=== PATIENT | female | born 1955 | race Caucasian/White ===

== ENCOUNTER 2024-08-29 09:25 | Outpatient (CLI) | payer MEDICARE, SELFPAY ==
--- NOTE | ~2024-08-29 | MM_ITS ---
BILATERAL DIGITAL SCREENING MAMMOGRAM WITH RAFITA INDICATION: Asymptomatic, referred for screening mammogram COMPARISON: 03/06/2006 TECHNIQUE: Digital breast tomosynthesis craniocaudal and mediolateral oblique views of Both breasts w ere obtained. FINDINGS: There are scattered areas of fibroglandular density. No focal dominant mass, architectural distortion, or suspicious microcalcifications are identified. There are no features to suggest malignancy. IMPRESSION: No evidence of malignancy in the breast. Recommend continued screening mammography BI-RADS 1, NEGATIVE Reviewed, dictated and finalized at location B.
--- NOTE | ~2024-08-29 | DEXA_ITS ---
Bone Density Report Name: YLOANDE BADILLO Age: 69 Sex: Female Ethnicity: White Date of : 1955 Indication: postmenopausal; screening for osteoporosis; height loss; Referring Provider: ESDRAS*, FLORINDA Chanel Study: Bone densitometry was performed. Exam Date: August 29, 2024 Accession number: [id number] Bone Density: Region BMD T-score Z-score Classification AP Spine(L1-L4) 0.919 -1.2 1.0 Osteopenia Femoral Neck (Left) 0.611 -2.1 -0.3 Osteopenia Total Hip (Left) 0.723 -1.8 -0.2 Osteopenia Femoral Neck (Right) 0.573 -2.5 -0.6 Osteoporosis Total Hip (Right) 0.670 -2.2 -0.6 Osteopenia Total Hip Mean 0.696 -2.0 -0.4 Osteopenia World Health Organization criteria for BMD impression classify patients as: Normal (T-score at or above -1.0), Osteopenia (T-score between -1.0 and -2.5), or Osteoporosis (T-score at or below -2.5). 10-year Fracture Risk: FRAX not reported because: Some T-score for Spine Total or Hip Total or Femoral Neck at or below -2.5 Clinical Information Provided by Patient: Has used the following medications: Vitamin D Patient maximum height was 70 Menopause Age: 49 No regular weight bearing exercise Does not regularly consume dairy products Drinks caffeinated beverages Onset of menses at age 11 Number of children 3 Impression: The patient has osteoporosis, based on the Right Femoral Neck T-score. Discussion: INCREASED RISK OF FRACTURE. BONE DENSITY IS UNDESIRABLY LOW AT ONE OR MORE SKELETAL SITES, CONSISTENT WITH POSTMENOPAUSAL OSTEOPOROSIS. This patient's lowest T-score meets the World Health Organization's (WHO) criteria for osteoporosis at one or more sites (T-score -2.5 or below). In untreated patients, the risk of osteoporotic fracture increases approximately two-fold for each 1.0 SD decrease in T-score. Low bone density is not the only risk factor for fracture; also consider factors such as patient's age, frailty or poor health, risk of falling, risk of injury, previous osteoporotic fracture, family history of osteoporosis, cigarette smoking, low body weight, etc. Not everyone with low bone mineral density has osteoporosis; osteomalacia and other metabolic bone disorders should also be considered. Patients who have osteoporosis should be evaluated for specific diseases and conditions (secondary causes) that may cause or contribute to bone loss. The [place] [employer]ocrinologists (AACE) and National Osteoporosis Foundation (NOF) recommend pharmacologic intervention for all postmenopausal women whose T-score is in this range. The patient should follow a healthful lifestyle (good nutrition with adequate calcium and vitamin D, and appropriate weight-bearing exercise). Follow-Up: Consider a repeat BMD and Vertebral Fracture Assessment (VFA) exam in 2 years or sooner if medically necessary, to reassess this patient's status. Reported by: ALEYDA on 08/29/2024 10:05:00 AM. Reviewed, dictated and finalized at location A.
--- OUTSIDE RECORDS SUMMARY | 2024-08-29 09:45 | XMS_ITS | CONTINUITY OF CARE DOCUMENT ---
Author Name linnette anglin Address Unknown Organization [facility] Address [address] [place] [address] Phone [phone] Care Team Providers Care Ordering Machine Operator Name Role Phone linnette anglin Unavailable Unavailable INSURANCE PROVIDERS Payer name Policy type / Coverage type [place] [employer] ID [facility] [id number]
== END 2024-08-29 09:26 | disposition home or self-care (01) ==
PROVIDERS: PCP Internal Medicine; Visit Provider Internal Medicine
DX: Z12.31 Encounter for screening mammogram for malignant neoplasm of breast (principal); M85.89 Other specified disorders of bone density and structure, multiple sites; M81.0 Age-related osteoporosis without current pathological fracture
CPT/HCPCS: 77063; 77067; 77080